=== PATIENT | female | born 1990 | race Caucasian/White ===

== ENCOUNTER 2022-04-05 02:00 | Emergency (ER) | payer BC, MEDICAID ==
[2022-04-05 02:30] LABS: ESTIMATED GFR 118 mL/min (>60)
[2022-04-05] MEDS: Iopamidol 755 Mg/ML 100 ML Bottle IV ONE (02:49)
[2022-04-05] MEDS: Enoxaparin 60 MG/0.6 ML Syringe ONE (03:42)
[2022-04-05] MEDS: Enoxaparin 120 MG/0.8 ML Syringe SUBCUT ONE (03:43)
[2022-04-05] MEDS: Enoxaparin 60 MG/0.6 ML Syringe SUBCUT ONE (03:44)
== END 2022-04-05 04:40 | disposition home or self-care (01) ==
LOC: FB.ED 02:00
DX: R07.89 Other chest pain (principal); I10 Essential (primary) hypertension; Z79.899 Other long term (current) drug therapy; Z86.16 Personal history of COVID-19
CPT/HCPCS: 36415; 71275; 80053; 84484; 85025; 93005; 93010; 96372; 99283; 99285; J1650; Q9967

== ENCOUNTER 2022-04-07 10:08 | Emergency (ER) | payer MEDICAID ==
[2022-04-07] MEDS ORDERED: LORazepam 0.5 MG Tab PO ONE (10:58)
[2022-04-07] MEDS ORDERED: Propranolol 40 MG Tab PO SCH (11:00)
== END 2022-04-07 12:04 | disposition home or self-care (01) ==
LOC: FB.ED 10:08
DX: O16.9 Unspecified maternal hypertension, unspecified trimester (principal); F41.1 Generalized anxiety disorder; Z3A.00 Weeks of gestation of pregnancy not specified; Z79.899 Other long term (current) drug therapy; Z86.16 Personal history of COVID-19; Z20.822 Contact with and (suspected) exposure to COVID-19
CPT/HCPCS: 36415; 85379; 99284; A9270-GY; U0002